=== PATIENT | female | born 1985 | race Caucasian/White ===

== ENCOUNTER 2021-08-18 18:50 | Inpatient (IN) | payer OTHER ==
[2021-08-18] MEDS: DEXTROSE 5%-LACTATED RINGERS 1,000 ML IV SCH (19:30)
[2021-08-18] MEDS ORDERED: DINOPROSTONE 10 MG VAGINAL SUPPOSITORY VG ONE (19:38)
[2021-08-18 20:17] VITALS: BMI 32.3
[2021-08-19] MEDS ORDERED: AMPICILLIN SODIUM 2 GM VIAL ONE (02:50)
[2021-08-19] MEDS ORDERED: AMPICILLIN SODIUM 2 GM VIAL IVPB ONE (03:00)
[2021-08-19] MEDS ORDERED: AMPICILLIN SODIUM 1 GM VIAL ONE ×4 (06:21→18:26)
[2021-08-19] MEDS: AMPICILLIN SODIUM 1 GM VIAL IVPB SCH ×4 (06:40→18:55)
[2021-08-19] MEDS ORDERED: FENTANYL/BUPIVACAINE/NS/PF - PCEA - 50 ML DISP.SYRIN EP ONE ×4 (08:30→20:19)
[2021-08-19] MEDS ORDERED: BUPIVACAINE HCL/PF 0.25% (2.5MG/ML) 10 ML VIAL ONE (08:49)
[2021-08-19] MEDS ORDERED: ELECTROLYTE-148 SOLN 1,000 ML IV SCH ×2 (09:00→10:00)
[2021-08-19] MEDS: FENTANYL/BUPIVACAINE/NS/PF - PCEA - 50 ML DISP.SYRIN EP SCH ×3 (09:05→16:05)
[2021-08-19] MEDS ORDERED: NALOXONE HCL 0.4 MG/ML VIAL IVPUSH PRN (09:10)
[2021-08-19] MEDS ORDERED: OXYTOCIN 30 UNITS in 0.9% NS 30 UNIT/500 ML INFUS.BAG IVPB SCH (09:30)
[2021-08-19] MEDS ORDERED: OXYTOCIN 30 UNITS in 0.9% NS 30 UNIT/500 ML INFUS.BAG IVPB ONE (10:10)
[2021-08-19] MEDS ORDERED: PCA PUMP NR ONE ×2 (13:01→18:56)
[2021-08-19] MEDS: DEXTROSE 5%-LACTATED RINGERS 1,000 ML IV SCH (19:00)
[2021-08-19] MEDS ORDERED: OXYTOCIN 20 UNITS in 0.9% NS 20 UNIT/1,000 ML INFUS.BAG IV ONE (19:18)
[2021-08-20] MEDS: ACETAMINOPHEN 325 MG TABLET (FP) PO PRN ×2 (00:35→21:59)
[2021-08-20] MEDS: IBUPROFEN 600 MG TABLET (FP) PO PRN ×2 (00:35→15:50)
[2021-08-20] MEDS: OXYTOCIN 20 UNITS in 0.9% NS 20 UNIT/1,000 ML INFUS.BAG IV SCH ×2 (00:35→05:40)
[2021-08-20] MEDS ORDERED: WITCH HAZEL 50% (TUCKS) 40 PAD/JAR PAD TP PRN (01:16)
[2021-08-20] MEDS ORDERED: BISACODYL 10 MG SUPP.RECT RC PRN (01:16)
[2021-08-20] MEDS ORDERED: BENZOCAINE 28 GM HEMORRHOIDAL OINTMENT TP PRN (01:16)
[2021-08-20] MEDS ORDERED: BENZOCAINE 20% 57 GM BOTTLE TP PRN (01:16)
[2021-08-20] MEDS ORDERED: METHYLERGONOVINE MALEATE 0.2 MG/1 ML AMP IM PRN (01:16)
[2021-08-20] MEDS: AMPICILLIN SODIUM 1 GM VIAL IVPB SCH ×2 (02:15→04:01)
[2021-08-20] MEDS ORDERED: AMPICILLIN SODIUM 1 GM VIAL ONE (02:59)
[2021-08-21 06:51] LABS: BASO % 0.2 % (0-2.0); EOS % 0.7 % (0-4.5); HEMATOCRIT 27.1 % (32.4-45.2); HEMOGLOBIN 9.3 GM/dL (10.7-15.3); LYMPH % 14.3 % (8-40); MCH 30.5 pg (25.7-33.7); MCHC 34.2 g/dl (32.0-36.0); NEUT % 78.8 % (42.8-82.8); PLATELET COUNT 127 10^3/uL (134-434); RBC 3.04 M/mm3 (3.60-5.2); RDW 13.7 % (11.6-15.6); WHITE BLOOD COUNT 9.6 K/mm3 (4.0-10.0)
[2021-08-21] MEDS: ACETAMINOPHEN 325 MG TABLET (FP) PO PRN (21:38)
[2021-08-21] MEDS ORDERED: SENNOSIDES/DOCUSATE COMBO (SENNA PLUS) TABLET (UD) PO PRN (22:00)
[2021-08-22] MEDS: IBUPROFEN 600 MG TABLET (FP) PO PRN (10:58)
[2021-08-22 12:29] VITALS: BP 118/72; PULSE 68; TEMP 98.6
== END 2021-08-22 13:05 | disposition home or self-care (01) | DRG 807 ==
LOC: JLDR 18:50 → J3W 08-20 03:24
PROVIDERS: ADMIT Specialist; ATTEND Specialist
PROC: 3E0P7VZ Introduction of Hormone into Female Reproductive, Via Natural or Artificial Opening (ICD-10-PCS; 2021-08-18)
PROC: 10907ZC Drainage of Amniotic Fluid, Therapeutic from Products of Conception, Via Natural or Artificial Opening (ICD-10-PCS; 2021-08-19)
PROC: 10D07Z6 Extraction of Products of Conception, Vacuum, Via Natural or Artificial Opening (ICD-10-PCS; principal; 2021-08-20)
PROC: 0W8NXZZ Division of Female Perineum, External Approach (ICD-10-PCS; 2021-08-20)
DX: O48.0 Post-term pregnancy (principal); Z37.0 Single live birth; O75.81 Maternal exhaustion complicating labor and delivery; Z3A.40 40 weeks gestation of pregnancy
CPT/HCPCS: 36415; 59409; 85025

== ENCOUNTER 2022-05-16 04:29 | Day surgery (SDC) | payer OTHER ==
[2022-05-15 18:44] VITALS: BMI 26.2
[2022-05-16] MEDS ORDERED: BUPIVACAINE HCL/PF 0.5% (5MG/ML) 10 ML VIAL ONE (09:13)
[2022-05-16] MEDS ORDERED: MIDAZOLAM HCL 2 MG/2 ML SINGLE DOSE VIAL ONE (09:29)
[2022-05-16] MEDS ORDERED: ACETAMINOPHEN INJECTION 100 ML IVPB ONE (09:36)
[2022-05-16] MEDS ORDERED: BUPIVACAINE HCL/PF 0.5% (5MG/ML) 10 ML VIAL IJ ONE ×3 (09:59→10:08)
[2022-05-16] MEDS ORDERED: ceFAZolin SODIUM 1 GM VIAL IVPB ONE (10:00)
[2022-05-16] MEDS ORDERED: PROPOFOL 20 ML ONE (10:11)
[2022-05-16 13:06] VITALS: BP 109/60; PULSE 72; TEMP 98
== END 2022-05-16 13:24 | disposition home or self-care (01) ==
LOC: JASU-SURG 04:29
PROVIDERS: ATTEND Surgery
PROC: 0WQF0ZZ Repair Abdominal Wall, Open Approach (ICD-10-PCS; principal; 2022-05-16 09:30)
DX: K42.9 Umbilical hernia without obstruction or gangrene (principal)
CPT/HCPCS: 81025; 88302-TC; 94760